=== PATIENT | male | born 1955 ===

== ENCOUNTER 2019-01-14 10:59 | Emergency (ER) | payer OTHER ==
[2019-01-14 11:06] VITALS: BP 132/75
[2019-01-14] MEDS ORDERED: IBUPROFEN 800 MG TAB PO ONE (11:57)
[2019-01-14] MEDS ORDERED: traMADol 50 MG TAB PO ONE (11:57)
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
== END 2019-01-14 13:39 | disposition home or self-care (01) ==
LOC: ED 10:59
DX: M54.5 Low back pain (principal); Z79.899 Other long term (current) drug therapy; V49.49XA Driver injured in collision with other motor vehicles in traffic accident, initial encounter; Y93.89 Activity, other specified; Y92.410 Unspecified street and highway as the place of occurrence of the external cause; Y99.8 Other external cause status
CPT/HCPCS: 72100